=== PATIENT | male | born 1975 | race Caucasian/White ===

== ENCOUNTER 2020-01-16 04:32 | Emergency (ER) | payer SELFPAY ==
[2020-01-16 04:39] VITALS: BP 138/84
--- NOTE | 2020-01-16 06:06 | ER Document Report ---
ED General - General Chief Complaint: Toothache Stated Complaint: TOOTHACHE/ABSCESS Time Seen by Provider: 01/16/20 05:54 - HPI Patient complains to provider of: tooth ache Notes: Well-appearing male in no acute distress presents with 2-day history of increasing dentalgia Pain 8/10 throbbing in nature left upper jaw. [place] dental work before he arrived here on [place] Denies any difficulty swallowing, denies trismus, denies fever or constitutional symptoms, denies any facial asymmetry - Related Data Home Medications: amoxicillin Past Medical History - Social History Smoking Status: Never Smoker Family History: None Physical Exam - Vital signs Vitals: Temp Pulse Resp BP Pulse Ox 97.9 F 72 18 138/84 H 96 01/16/20 04:37 01/16/20 04:37 01/16/20 04:37 01/16/20 04:37 01/16/20 04:37 - Notes Notes: PHYSICAL EXAMINATION: GENERAL: Well-appearing, well-nourished and in no acute distress. HEAD: Atraumatic, normocephalic. EYES: Pupils equal round, sclera anicteric, conjunctiva are normal. ENT: Surgical mask in place. Teeth: Recent dental work left upper premolar, no abscess felt NECK: Normal range of motion, LUNGS: No respiratory Distress, normal chest rise EXTREMITIES: Normal range of motion, No cyanosis. NEUROLOGICAL: Cranial nerves grossly intact. Normal speech, PSYCH: Normal mood, normal affect. SKIN: Warm, Dry, Course - Re-evaluation Re-evalutation: 01/16/20 06:09 No appearing man in no acute distress dentalgia, will initiate clindamycin therapy. Patient declines any need for analgesia stable vital signs within normal limits - Vital Signs Vital signs: Temp Pulse Resp BP Pulse Ox 97.9 F 72 18 138/84 H 96 01/16/20 04:37 01/16/20 04:37 01/16/20 04:01/16/20 04:37 01/16/20 04:37 Discharge - Discharge Clinical Impression: Dentalgia Condition: Stable Disposition: HOME, SELF-CARE Instructions: Clindamycin ([facility]) Prescriptions: Clindamycin HCl 300 mg PO Q6H #28 capsule
== END 2020-01-16 06:10 | disposition home or self-care (01) ==
LOC: ER 04:32
DX: K08.89 Other specified disorders of teeth and supporting structures (principal); Z98.890 Other specified postprocedural states
CPT/HCPCS: 99283